=== PATIENT | female | born 1970 | race Two or more races ===

== ENCOUNTER 2018-11-09 19:44 | Emergency (ER) | payer MEDICAID ==
[~2018-11-09] VITALS: Ht 152.4 cm; Wt 68.0 kg
[2018-11-09 20:34] LABS: Urine Bacteria FEW /hpf (None Seen); Urine Blood Negative /uL (Negative); Urine Mucus FEW (None Seen); Urine Specific Gravity 1.028 (1.001-1.035); Urine WBC <1 /hpf (0 - 5)
[2018-11-09 20:58] VITALS: BP 157/84
[2018-11-09] MEDS ORDERED: PHENAZOPYRIDINE HCL 100 MG TAB PO ONE (21:00)
[2018-11-09] MEDS ORDERED: cefTRIAXone SOD 1,000 MG VL IM ONE (21:00)
[2018-11-09] MEDS ORDERED: AZITHROMYCIN 250 MG TAB PO ONE (21:30)
== END 2018-11-09 21:47 | disposition home or self-care (01) ==
LOC: ER 19:44
DX: Z20.2 Contact with and (suspected) exposure to infections with a predominantly sexual mode of transmission (principal)
CPT/HCPCS: 81001; 96372; 99283; J0696

== ENCOUNTER 2018-12-28 15:07 | Emergency (ER) | payer MEDICAID ==
[~2018-12-28] VITALS: Ht 154.9 cm; Wt 69.4 kg
[2018-12-28 15:17] VITALS: BP 126/80
[2018-12-28] MEDS ORDERED: diphenhdrAMINE HCL 50 MG/1 ML VL IM ONE (16:30)
== END 2018-12-28 17:37 | disposition home or self-care (01) ==
LOC: ER 15:07
DX: M47.892 Other spondylosis, cervical region (principal); M54.12 Radiculopathy, cervical region; F41.9 Anxiety disorder, unspecified; M79.601 Pain in right arm; X58.XXXA Exposure to other specified factors, initial encounter; Y93.89 Activity, other specified; Y92.89 Other specified places as the place of occurrence of the external cause; Y99.8 Other external cause status
CPT/HCPCS: 72040; 81002; 81025; 96372; 99283; J1200

== ENCOUNTER 2022-01-28 08:59 | Emergency (ER) | payer MEDICAID ==
[~2022-01-28] VITALS: Ht 157.5 cm; Wt 72.6 kg
[2022-01-28 09:04] VITALS: BP 152/66
[2022-01-28] MEDS ORDERED: KETOROLAC TROMETH 60MG/2ML VIAL IM ONE (10:00)
[2022-01-28] MEDS ORDERED: METH750T22 PO (10:51)
[2022-01-28] MEDS ORDERED: IBUP800T27 PO (10:51)
== END 2022-01-28 11:00 | disposition home or self-care (01) ==
LOC: ER 08:59
DX: M54.32 Sciatica, left side (principal); M79.10 Myalgia, unspecified site
CPT/HCPCS: 93971; 96372; 99284; J1885

== ENCOUNTER 2022-06-09 07:42 | Emergency (ER) | payer MEDICAID ==
[~2022-06-09] VITALS: Ht 152.4 cm; Wt 74.0 kg
[~2022-06-09 07:42] MED LIST: IBUP800T27 PO; METH750T22 PO
[2022-06-09 08:54] VITALS: BP 129/65
[2022-06-09] MEDS ORDERED: IBUP800T27 PO (09:04)
== END 2022-06-09 09:18 | disposition home or self-care (01) ==
LOC: ER 07:42
DX: S93.401A Sprain of unspecified ligament of right ankle, initial encounter (principal); W10.8XXA Fall (on) (from) other stairs and steps, initial encounter; Y93.01 Activity, walking, marching and hiking; Y92.89 Other specified places as the place of occurrence of the external cause; Y99.8 Other external cause status
CPT/HCPCS: 73610